=== PATIENT | female | born 1995 | race Caucasian/White ===

== ENCOUNTER 2019-07-22 12:07 | Observation (INO) | payer OTHER ==
[~2019-07-22] VITALS: Ht 165.1 cm; Wt 111.6 kg
[2019-07-22] MEDS ORDERED: PREN-380 PO (12:29)
[2019-07-22] MEDS: TERBUTALINE 1 MG/ML VIAL SUBQ SCH ×2 (12:44→13:31)
[2019-07-22] MEDS: BETAMETH ACET/BETAMETH NA PH 30 MG/5 ML VIAL IM SCH (12:45)
[2019-07-22] MEDS: LACTATED RINGERS 1,000 ML IV SCH ×2 (13:58→16:50)
[2019-07-22 14:23] VITALS: BP 107/61
--- NOTE | 2019-07-22 14:26 | NUR ---
PATIENT HAS BEEN SCREENED AND CATEGORIZED LOW NUTRITION RISK. PATIENT WILL BE SEEN WITHIN 7 DAYS OF ADMISSION. 07/29/[address]
[2019-07-22 14:31] LABS: APPEARANCE,URINE SL CLOUDY (CLEAR); BILIRUBIN,URINE NEGATIVE (NEGATIVE); BLOOD, URINE TRACE-I (NEGATIVE); COLOR,URINE YELLOW (YELLOW); LEUKOCYTE ESTERASE ,URINE 2+ (NEGATIVE); NITRITE, URINE NEGATIVE (NEGATIVE); UGLUCOSE NEGATIVE (NEGATIVE)
[2019-07-22] MEDS ORDERED: MAG SULF 2000 MG/WATER PREMIX 100 ML IV ONE (16:20)
[2019-07-22] MEDS: NIFEdipine 10 MG CAPLF PO SCH ×4 (16:45→20:36)
[2019-07-22 17:00] LABS: ALBUMIN 2.4 g/dL (3.4-5.0); CARBON DIOXIDE 23.7 mmol/L (21-32); CREATININE 0.7 mg/dL (0.6-1.3); MAGNESIUM 1.5 mg/dL (1.8-2.4); POTASSIUM 3.7 mmol/L (3.5-5.1); TOTAL BILIRUBIN 0.2 mg/dL (0.0-1.0)
[2019-07-22] MEDS: MAG SULF 20 GM/H2O PREMIX DRIP 500 ML IV SCH (17:18)
[2019-07-22] MEDS: NACL 0.9% 1,000 ML IV SCH (18:37)
[2019-07-23] MEDS: NIFEdipine 10 MG CAPLF PO SCH ×4 (00:12→11:57)
[2019-07-23] MEDS: MAG SULF 20 GM/H2O PREMIX DRIP 500 ML IV SCH (03:38)
[2019-07-23] MEDS: NACL 0.9% 1,000 ML IV SCH (08:01)
[2019-07-23] MEDS: BETAMETH ACET/BETAMETH NA PH 30 MG/5 ML VIAL IM SCH (12:46)
== END 2019-07-23 13:13 | disposition home or self-care (01) ==
LOC: MLD 12:07
PROVIDERS: ADMIT Obstetrics & Gynecology; ATTEND Obstetrics & Gynecology
DX: O47.03 False labor before 37 completed weeks of gestation, third trimester (principal); O30.043 Twin pregnancy, dichorionic/diamniotic, third trimester; Z3A.33 33 weeks gestation of pregnancy
CPT/HCPCS: 36415; 76810; 80053; 81001; 82731; 82948; 83735; 87086; 96365; 96366; 96368; 96372; G0378; J0696; J0702; J3105; J3475; J7060; J7120; Q0092

== ENCOUNTER 2019-08-05 04:25 | Inpatient (IN) | payer OTHER ==
[~2019-08-05] VITALS: Ht 162.6 cm; Wt 90.7 kg
[~2019-08-05 04:25] MED LIST: PREN-380 PO
[2019-08-05] MEDS ORDERED: LACTATED RINGERS 1,000 ML IV SCH (04:50)
[2019-08-05] MEDS ORDERED: CITRIC ACID/SODIUM CITRATE 30 ML UDC PO ONE (05:25)
[2019-08-05] MEDS ORDERED: OXYTOCIN 20 UNITS/LR PREMIX 1,000 ML IV ONE (05:50)
[2019-08-05] MEDS ORDERED: ceFAZolin 1,000 MG VIAL ONE (05:51)
[2019-08-05 05:56] LABS: BASOPHILS # (AUTO) 0.1 K/uL (0.00-0.22); BASOPHILS % (AUTO) 0.4 % (0.0-2.0); EOSINOPHILS # (AUTO) 0.1 K/uL (0-0.4); EOSINOPHILS % (AUTO) 0.7 % (0.0-4.0); HEMATOCRIT 43.5 % (36-48); HEMOGLOBIN 14.2 g/dL (12.0-16.0); LYMPHOCYTES # (AUTO) 3.8 K/uL (2.5-16.5); LYMPHOCYTES % (AUTO) 28.2 % (20.5-51.1); MEAN CORPUSCULAR HEMOGLOBIN 28 pg (27-31); MEAN CORPUSCULAR HGB CONC 33 g/dL (33-37); MEAN CORPUSCULAR VOLUME 84.1 fL (80-94); MONOCYTES # (AUTO) 1.3 K/uL (0.8-1.0); MONOCYTES % (AUTO) 9.8 % (1.7-9.3); NEUTROPHILS # (AUTO) 8.3 K/uL (1.8-7.7); NEUTROPHILS % (AUTO) 60.9 % (42.2-75.2); PLATELET COUNT (AUTO) 257 K/uL (140-450); RED BLOOD CELL COUNT(AUTO) 5.17 MIL/uL (4.20-5.40); RED CELL DISTRIBUTION WIDTH 15.6 % (11.6-13.7); WHITE BLOOD COUNT (AUTO) 13.6 K/uL (4.8-10.8)
[2019-08-05] MEDS ORDERED: HYDROcodone/APAP 5/325 MG 1 TAB TAB PO PRN (06:10)
[2019-08-05] MEDS ORDERED: TEMAZEPAM 15 MG CAP PO PRN (06:10)
[2019-08-05] MEDS ORDERED: OXYTOCIN 10 UNITS/ML VIAL IM PRN (06:10)
[2019-08-05] MEDS ORDERED: METHYLERGONOVINE 0.2 MG/ML AMP IM PRN (06:10)
[2019-08-05] MEDS ORDERED: oxyCODONE/APAP 5/325 MG 1 TAB TAB PO PRN (06:10)
[2019-08-05] MEDS ORDERED: BENZOCAINE/MENTHOL 20%-0.5% 60 GM CAN TP PRN (06:10)
[2019-08-05] MEDS ORDERED: METHYLERGONOVINE 0.2 MG TAB PO PRN (06:10)
[2019-08-05] MEDS ORDERED: BISACODYL 10 MG SUPP RC PRN (06:10)
[2019-08-05] MEDS ORDERED: IBUPROFEN 800 MG TAB PO PRN (06:10)
[2019-08-05] MEDS ORDERED: SODIUM PHOSPHATE 118 ML ENEM RC PRN (06:10)
--- NOTE | 2019-08-05 09:04 | NUR ---
PATIENT HAS BEEN SCREENED AND CATEGORIZED LOW NUTRITION RISK. PATIENT WILL BE SEEN WITHIN 7 DAYS OF ADMISSION. 08/11/[address]
[2019-08-05] MEDS ORDERED: DOCUSATE SOD/SENNA 50/8.6 MG 1 TAB PO SCH (21:00)
[2019-08-05] MEDS: ENOXAPARIN 40 MG/0.4 ML SYR SUBQ SCH (22:18)
[2019-08-06 06:43] LABS: HEMATOCRIT 37.1 % (36-48); HEMOGLOBIN 12.3 g/dL (12.0-16.0)
[2019-08-06] MEDS: ENOXAPARIN 40 MG/0.4 ML SYR SUBQ SCH (21:53)
[2019-08-07] MEDS ORDERED: IBUP-2213 PO (15:33)
[2019-08-07] MEDS ORDERED: FERR325E14 PO (15:34)
== END 2019-08-07 18:00 | disposition home or self-care (01) | DRG 560 ==
LOC: MFCC 04:25
PROVIDERS: ADMIT Obstetrics & Gynecology; ATTEND Obstetrics & Gynecology
PROC: 10E0XZZ Delivery of Products of Conception, External Approach (ICD-10-PCS; principal; 2019-08-05)
PROC: 0W8NXZZ Division of Female Perineum, External Approach (ICD-10-PCS; 2019-08-05)
DX: O42.013 Preterm premature rupture of membranes, onset of labor within 24 hours of rupture, third trimester (principal); O24.429 Gestational diabetes mellitus in childbirth, unspecified control; Z37.0 Single live birth; Z3A.36 36 weeks gestation of pregnancy
CPT/HCPCS: 36415; 85018; 85025; 86592; 86886; 86900; 86901; J0690; J1650; J2590; J7120